=== PATIENT | female | born 1975 | race Two or more races ===

== ENCOUNTER 2016-08-20 11:16 | Emergency (ER) | payer OTHER ==
[~2016-08-20] VITALS: Ht 170.2 cm; Wt 104.3 kg
[2016-08-20 13:05] VITALS: BP 111/86
== END 2016-08-20 13:05 | disposition home or self-care (01) ==
LOC: ED 11:16
DX: T78.1XXA Other adverse food reactions, not elsewhere classified, initial encounter (principal); X58.XXXA Exposure to other specified factors, initial encounter
CPT/HCPCS: J1200; J2930; J3490